=== PATIENT | male | born 1965 | race Caucasian/White ===

== ENCOUNTER 2018-11-28 09:23 | Inpatient (IN) ==
--- NOTE | 2018-11-26 15:12 | Anesthesiology Consultation ---
Date of Service November 26, 2018 Assessment & Plan (1) Encounter for pre-operative examination: Chart Review Chart Review: Acceptable Risk for Surgery and Patient NOT seen in Pre Admission Testing History Surgery Operation Date: 11/28/18 12:00 Proposed Procedures p Right Humerus Fracture Proximal Open Reduction Internal Fixation - Addison Callahan MD Height/Weight Height: 5 ft 10 in Weight: 84 kg Allergies Allergy/AdvReac Type Severity Reaction Status Date / Time No Known Allergies Allergy Unverified 11/26/18 15:08 Medications Home Medications Medication Instructions Recorded Confirmed Last Taken aspirin [Aspirin Low Dose] 81 mg PO DAILY 11/22/18 11/22/18 11/21/18 hydrocodone-acetaminophen [[place]] 1 tab PO Q8H PRN #9 tab 11/22/18 Unknown minoxidil [Rogaine] 1 ml TOPICAL BID 11/22/18 11/22/18 11/21/18 Past Medical History Medical History No pertinent past medical history Past Surgical History Surgical History No pertinent past surgical history Social History Smoking Status: Never smoker Testing Electrocardiogram Date: 10/09/18 SR with PACs at 61bpm. Possible LAE. Chest X-Ray Date: 11/22/18 No acute cardiopulmonary abnormality. Partially imaged acute fracture about the proximal right humerus. Laboratory Results 10/18/18 POTASSIUM 3.8 CREATININE 1.05 GLUCOSE 91
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
[~2018-11-28 09:23] MED LIST: EPINEPHrine INJ 1 MG/ML AMP ONE; LR 15ML/HR IV SCH; ROPIVACAINE 0.5% 5 MG/ML 30 ML VIAL ONE
[2018-11-28] MEDS ORDERED: ePHEDrine sulfate 50 MG/ML AMP IV PRN (10:21)
[2018-11-28] MEDS ORDERED: MEPERIDINE HCL 25 MG/ML CARP IV PRN (10:21)
[2018-11-28] MEDS ORDERED: HYDROmorphone INJ 1 MG/ML SYRINGE IV PRN (10:21)
[2018-11-28] MEDS ORDERED: ATROPINE SULFATE 0.1 MG/ML 10ML SYR IV PRN (10:21)
[2018-11-28] MEDS ORDERED: LABETALOL HCL IV 5 MG/ML 20ML IV PRN (10:21)
[2018-11-28] MEDS ORDERED: ONDANSETRON INJ 2 MG/ML 2 ML VIAL IV PRN ×2 (10:21→15:53)
[2018-11-28] MEDS ORDERED: PHENYLEPHRINE 100MCG/ML 5ML SYR IV PRN (10:21)
[2018-11-28] MEDS ORDERED: fentaNYL citrate 100 MCG/2 ML VIAL IV PRN (10:21)
[2018-11-28] MEDS ORDERED: SCOPOLAMINE 1.5 MG TDSY ONE (10:55)
[2018-11-28] MEDS: SCOPOLAMINE 1.5 MG TDSY TD ONE ×2 (10:57→17:35)
[2018-11-28] MEDS ORDERED: DEXAMETHASONE SOD INJ 4 MG/ML VIAL ONE (11:32)
[2018-11-28] MEDS ORDERED: PROPOFOL IV EMULSION 10 MG/ML 20 ML VIAL IV ONE (11:32)
[2018-11-28] MEDS ORDERED: ROCURONIUM BROMIDE 10 MG/ML 5 ML VIAL ONE (11:32)
[2018-11-28] MEDS ORDERED: MIDAZOLAM HCL 1 MG/ML 2ML VIAL ONE (11:32)
[2018-11-28] MEDS ORDERED: fentaNYL citrate 100 MCG/2 ML VIAL ONE ×2 (11:32→16:13)
[2018-11-28] MEDS ORDERED: ONDANSETRON INJ 2 MG/ML 2 ML VIAL ONE ×2 (11:32→13:02)
[2018-11-28] MEDS ORDERED: LIDOCAINE HCL 2% 2 ML VIAL/AMP(20MG/ML) INFIL ONE (11:32)
[2018-11-28] MEDS ORDERED: CEFAZOLIN 2,000 MG/15 ML IV PUSH IV ONE (12:15)
[2018-11-28] MEDS ORDERED: CEFAZOLIN 2000MG 2,000 MG/15 ML SYR IV ONE (12:29)
--- NOTE | 2018-11-28 12:30 | History & Physical Bridge Note ---
Date of Service November 28, 2018 History & Physical Bridge Note I have examined the patient, reviewed the History & Physical and in the interval since the performance of the History & Physical I have noted the following changes of clinical significance: no changes noted
[2018-11-28] MEDS ORDERED: HYDROmorphone INJ 2 MG/ML SYR/VIAL ONE (13:08)
[2018-11-28] MEDS ORDERED: BUPIVACAINE 0.5 % 5 MG/1 ML MPF 30ML VIAL ONE (13:12)
[2018-11-28] MEDS ORDERED: ePHEDrine sulfate 50 MG/ML SYR ONE (13:40)
[2018-11-28] MEDS ORDERED: NEOSTIGMINE METHYLSULFATE 5 MG/5 ML SYR ONE (15:07)
[2018-11-28] MEDS ORDERED: GLYCOPYRROLATE 0.2 MG/ML VIAL ONE (15:07)
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
--- NOTE | 2018-11-28 15:33 | Fluoroscopy Report ---
FL humerus RT 2V CLINICAL HISTORY: RIGHT PROXIMAL HUMERUS ORIF COMPARISON STUDY: Right shoulder radiographs and CT of the right shoulder November 22, 2018. FLUOROSCOPY TIME: 88 seconds. FLUOROSCOPIC IMAGES: 3. FINDINGS: These images demonstrate postoperative findings consistent with internal fixation of the ri ght humeral neck fracture with plate and screws. Fracture alignment has markedly improved. Plate and screws are noted. Tiny metallic density projects over the proximal shaft of the right humerus. IMPRESSION: Postoperative findings consistent with internal fixation of the right humeral neck fract ure. Electronically signed by: Av Cutler M.D. 11/28/2018 3:31 PM
[2018-11-28] MEDS ORDERED: MAGNESIUM HYDROXIDE SUSP 30 ML UDC PO PRN (15:53)
[2018-11-28] MEDS ORDERED: BISACODYL 10 MG SUPP PR PRN (15:53)
[2018-11-28] MEDS ORDERED: METOCLOPRAMIDE HCL INJ 5 MG/ML 2 ML VIAL IV PRN (15:53)
[2018-11-28] MEDS ORDERED: NALOXONE HCL 0.4 MG/1 ML VIAL/CARP IV PRN (15:53)
[2018-11-28] MEDS ORDERED: OXYCODONE HCL IR 5 MG TAB (IMMEDIATE RELEASE) PO PRN (15:53)
[2018-11-28] MEDS ORDERED: HYDROmorphone INJ 0.5 MG/0.5 ML SYR IV PRN (15:53)
--- NOTE | 2018-11-28 16:56 | Anesthesiology Progress Note ---
Date of Service November 28, 2018 Anesthesia Post Procedure Vital Signs Vital Signs: Temp Pulse Pulse Resp BP Pulse Ox 11/28/18 16:40 87 16 163/90 H 95 11/28/18 16:30 36.4 C L 81 16 166/95 H 94 11/28/18 16:21 77 16 156/94 H 100 11/28/18 16:10 87 16 157/97 H 100 11/28/18 16:00 78 16 159/90 H 100 11/28/18 15:54 36.3 C L 84 16 153/93 H 100 11/28/18 09:58 36.6 C 68 18 142/89 H 99 Pain Intensity Right Upper Arm: Pain Intensity: 3 Notes Mental Status: alert / awake / arousable Patient Amnestic to Procedure: Yes Nausea / Vomiting: adequately controlled Pain: adequately controlled Airway Patency, RR, SpO2: stable & adequate BP & HR: stable & adequate Hydration State: stable & adequate Anesthetic Complications: no major complications apparent
[2018-11-28] MEDS: CHECK SCOPOLAMINE PATCH PLACEMENT SCH ×2 (17:35→23:06)
[2018-11-28] MEDS ORDERED: SODIUM CHLORIDE 0.9% 1000ML 1,000 ML IV SCH (17:40)
[2018-11-28] MEDS ORDERED: SENNA 8.6 MG TAB PO SCH (21:00)
[2018-11-28] MEDS: ACETAMINOPHEN 500 MG TAB PO SCH (21:16)
[2018-11-28] MEDS: DOCUSATE SODIUM 100 MG CAP PO SCH (21:17)
[2018-11-28] MEDS: TAMSULOSIN HCL 0.4 MG CAP PO PRN (23:19)
[2018-11-29] MEDS: ACETAMINOPHEN 500 MG TAB PO SCH ×2 (05:08→13:02)
[2018-11-29 06:32] LABS: Hematocrit (blood only) 33.9 % (42-52); Hemoglobin 12.2 g/dL (14.0-18.0); Mean Corpuscular Volume 81.5 fL (80-100); Mean Platelet Volume 8.2 fL (7.4-10.4); Platelet Count 190 K/uL (130-400); RDW Coefficient of Variation 13.5 % (11.5-14.5); RDW Standard Deviation 40.7 fL (36.4-46.3); Red Blood Count 4.16 M/uL (4.7-6.1); White Blood Count 11.62 K/uL (4.8-10.8)
[2018-11-29 06:39] LABS: BUN Creatinine Ratio 17.4 (10-20); Calcium 8.5 mg/dl (8.5-10.1); Creatinine Clr Calc Pharmacy 87.9 ml/min; Est GFR (African American) 100.2; Est GFR (Non-African American) 86.4
--- NOTE | 2018-11-29 07:16 | Orthopedic Progress Note ---
Date of Service November 29, 2018 Assessment & Plan (1) Proximal humerus fracture: POD#1 right proximal humerus fracture ORIF -DVT prophylaxis-SCDs -Pain management. -D/C planning-home possibly later today. -Patient may need straight cath for urinary retention, he is currently refusing cath. -AM labs reviewed. Hemglobin 12.2 Subjective Patient seen resting in bed. Shoulder pain is at tolerable level, relieved by PO pain medications. No chest pain, n/v, dizziness. Is having some urinary retention. Has baseline BPH. Is urinating but not very much. Had bladder scan overnight with 959cc, refusing straight cath at this time. Review of Systems Review of Systems: All systems reviewed & are unremarkable except as noted in HPI & below Physical Exam Physical Exam: WN/WD, no acute distress. Dressing is c/d/i, sling in place. Fingers mobile, sensation and n/v status intact. Results & Data Vital Signs (Past 12 Hours) Vital Signs Temp Pulse Resp BP Pulse Ox 11/29/18 02:20 36.9 C 73 18 150/89 H 96 11/28/18 23:00 37.2 C 89 16 144/80 H 97 11/28/18 20:07 36.7 C 88 17 134/81 96 (1) Proximal humerus fracture Encounter type: subsequent encounter Fracture type: closed Fracture morphology: other fracture Fracture alignment: displaced Laterality: right
[2018-11-29] MEDS: CHECK SCOPOLAMINE PATCH PLACEMENT SCH ×2 (07:56→15:34)
--- NOTE | 2018-11-29 07:57 | Anesthesiology Progress Note ---
Date of Service November 29, 2018 Anesthesia Post Procedure Vital Signs Vital Signs: Temp Pulse Pulse Resp BP Pulse Ox 11/29/18 07:28 37.0 C 68 16 133/81 98 11/29/18 02:20 36.9 C 73 18 150/89 H 96 11/28/18 23:00 37.2 C 89 16 144/80 H 97 11/28/18 20:07 36.7 C 88 17 134/81 96 11/28/18 18:52 75 18 111/68 95 11/28/18 17:56 36.8 C 86 18 149/77 H 95 11/28/18 17:28 36.5 C 91 H 18 148/91 H 94 11/28/18 17:19 37.4 C 82 18 152/90 H 95 11/28/18 16:40 87 16 163/90 H 95 11/28/18 16:30 36.4 C L 81 16 166/95 H 94 11/28/18 16:21 77 16 156/94 H 100 11/28/18 16:10 87 16 157/97 H 100 11/28/18 16:00 78 16 159/90 H 100 11/28/18 15:54 36.3 C L 84 16 153/93 H 100 11/28/18 09:58 36.6 C 68 18 142/89 H 99 Pain Intensity Right Upper Arm: Pain Intensity: 6 Notes Mental Status: alert / awake / arousable and participated in evaluation Patient Amnestic to Procedure: Yes Nausea / Vomiting: adequately controlled Pain: adequately controlled Airway Patency, RR, SpO2: stable & adequate BP & HR: stable & adequate Hydration State: stable & adequate Anesthetic Complications: no major complications apparent and Pt Satisfied with anesthetic care
[2018-11-29] MEDS: DOCUSATE SODIUM 100 MG CAP PO SCH (08:06)
[2018-11-29] MEDS ORDERED: MULTIVITAMIN TAB PO SCH (09:00)
[2018-11-29] MEDS ORDERED: ASPIRIN 81 MG ECTAB PO SCH (09:00)
[2018-11-29 15:22] VITALS: BP 117/66; PULSE 69; TEMP 98.6; O2SAT 96
[2018-11-29] MEDS: TAMSULOSIN HCL 0.4 MG CAP PO PRN (19:04)
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
== END 2018-11-29 19:20 | disposition home or self-care (01) | DRG 494 ==
LOC: ASU 09:23 → 3E 15:54
DX: S42.291A Other displaced fracture of upper end of right humerus, initial encounter for closed fracture; Y93.55 Activity, bike riding; Y99.8 Other external cause status; V19.9XXA Pedal cyclist (driver) (passenger) injured in unspecified traffic accident, initial encounter; N40.1 Benign prostatic hyperplasia with lower urinary tract symptoms; R33.8 Other retention of urine